=== PATIENT | female | born 1990 | race Asian ===

== ENCOUNTER 2016-07-05 00:44 | Emergency (ER) | payer OTHER ==
[~2016-07-05] VITALS: Ht 170.2 cm; Wt 74.8 kg
[2016-07-05] MEDS ORDERED: NKM (00:55)
[2016-07-05 01:06] VITALS: BP 108/69
[2016-07-05] MEDS ORDERED: Ketorolac 60mg Inj IM ONE (01:15)
[2016-07-05] MEDS ORDERED: ACETAMINOPHEN-1 EAC1 ORAL (01:16)
[2016-07-05] MEDS ORDERED: IBUPROFEN600 MG ORAL (01:16)
[2016-07-05] MEDS ORDERED: VENTOLIN HFA18 GM INH (01:16)
[2016-07-05] MEDS ORDERED: FLONASE ALLERG9.9 ML NS (01:16)
[2016-07-05 01:30] VITALS: BP 108/69
--- NOTE | 2016-07-05 01:33 | Emergency Room Report ---
History of Present Illness General Chief Complaint: Fever Source: Patient Present Illness HPI 26 YO F with 3 days rhinorrhea, sore throat, dry cough, fever. Took Nyquill last night, didnt help much. No other med problems. Didnt take any other meds. Denies headache, neck pain/stiffness, chest pain, SOB, abd pain, urinary complaints. Allergies: Coded Allergies: No Known Allergies (Unverified , 07/05/16) Patient History Past Medical History: none Past Surgical History: none Pertinent Family History: none Social History: Denies: alcohol use, drug use, smoking Last Menstrual Period: Jun Now: No Immunizations: UTD Reviewed Nursing Documentation: PMH: Agreed, PSxH: Agreed Nursing Documentation-PMH Past Medical History: No Stated History Review of Systems All Other Systems: negative except mentioned in HPI Physical Exam Vital Signs Date Time Temp Pulse Resp B/P Pulse Ox O2 Delivery O2 Flow Rate FiO2 07/05/16 00:49 100.8 100 18 108/69 97 Room Air Sp02 EP Interpretation: reviewed, normal General Appearance: normal inspection, well appearing, no apparent distress, alert, GCS 15, non-toxic Head: normocephalic, atraumatic Eyes: bilateral eye EOMI, bilateral eye PERRL ENT: normal ENT inspection, hearing grossly normal, normal pharynx, no angioedema, normal voice, TMs + canals normal, uvula midline Neck: normal inspection, full range of motion, supple, no bony tend Respiratory: normal inspection, lungs clear, normal breath sounds, no rhonchi, no respiratory distress, no retraction, no accessory muscle use, no wheezing, speaking full sentences Cardiovascular #1: normal inspection, normal peripheral pulses, regular rate, rhythm, no edema Gastrointestinal: normal inspection, normal bowel sounds, non tender, soft, no guarding, no hernia Genitourinary: no CVA tenderness Musculoskeletal: normal inspection, back normal, normal range of motion, Linda' s Sign negative Neurologic: normal inspection, alert, oriented x3, responsive, 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 VSS. Afebrile No obvious source of bacterial infection in oropharynx, ears, lungs, skin, abdomen on exam Well appearing Advised supportive treatment IM toradol given here - patient refused nebs, decadron, anything sedating as she is taking uber taxi home Flonase as needed for nasal congestion, T#3 for cough, Ibuprofen for sore throat PMD followup DC home Understands to return for worsening symptoms - Follow up with your primary care doctor in 2-3 days Last Vital Signs Date Time Temp Pulse Resp B/P Pulse Ox O2 Delivery O2 Flow Rate FiO2 07/05/16 01:06 100.8 99 12 108/69 98 Room Air Status: improved Disposition: HOME, SELF-CARE Condition: Improved Scripts Fluticasone Propionate (Flonase Allergy Relief) 9.9 Ml [place].susp 9.9 ML NS BID for nasal congestion for 7 Days, #1 UNIT Prov: CATIE JAMISON M.D. 07/05/16 Albuterol Sulfate (VENTOLIN HFA) 18 Gm Hfa.aer.ad 1 PUFF INH EVERY 6 HOURS for For Cough, #18 GM 0 Refills Prov: CATIE JAMISON M.D. 07/05/16 Acetaminophen With Codeine (T#3) (TYLENOL #3 TAB*) Y Tab 1 TAB ORAL QHS Y for For Cough, #20 TAB Prov: CATIE JAMISON M.D. 07/05/16 Ibuprofen* (MOTRIN*) 600 Mg Tablet 600 MG ORAL THREE TIMES A DAY Y for sore throat, #30 TAB 0 Refills Prov: CATIE JAMISON M.D. 07/05/16 Referrals: NOT CHOSEN IPA/,REFERRING (PCP) Patient Instructions: Upper Respiratory Infection, Adult, [id number], Fever, Adult, [id number] Additional Instructions: - Use albuterol inhaler as needed during the day for cough, chest tightness - Dry tea with honey OR Tylenol with codeine at night for cough - Use flonase spray for nasal congestion - Take ibuprofen with food as needed up to 3x a day for sore throat CATIE JAMISON M.D. Jul 05, 2016 01:33
== END 2016-07-05 01:30 | disposition home or self-care (01) ==
LOC: EMR 01:10
DX: J06.9 Acute upper respiratory infection, unspecified (principal)
CPT/HCPCS: 96372; 99284